=== PATIENT | male | born 1960 | race Caucasian/White ===

== ENCOUNTER 2022-08-01 12:50 | Emergency (ER) | payer OTHER ==
[~2022-08-01] VITALS: Ht 170.2 cm; Wt 81.6 kg
[2022-08-01 12:58] VITALS: BP 140/98
--- NOTE | 2022-08-01 13:02 | NUR ---
patient brought to room 4
[2022-08-01] MEDS ORDERED: IBUPROFEN 600 MG TAB PO ONE (13:15)
[2022-08-01] MEDS ORDERED: LIDOCAINE 1% 500 MG/ 50 ML VIAL INJ ONE (13:15)
[2022-08-01] MEDS ORDERED: LIDOCAINE MPF 1% 5 ML ONE (13:21)
[2022-08-01] MEDS ORDERED: LIDOCAINE MPF 1% 10 MG/ML VIAL INJ ONE (13:25)
[2022-08-01] MEDS ORDERED: BACITRACIN OINT 500 UNITS/GM PKT TP ONE (13:35)
[2022-08-01] MEDS ORDERED: IBUP-2213 PO (13:36)
[2022-08-01] MEDS ORDERED: BACI-416 TP (13:36)
--- NOTE | 2022-08-01 13:56 | NUR ---
Patient discharged with v/s stable. Written and verbal after care instructions given and explained. Patient alert, oriented and verbalized understanding of instructions. Ambulatory with steady gait. All questions addressed prior to discharge. ID band removed. Patient advised to follow up with PMD. Rx of MOTRIN, BACITRACIN given. Patient educated on indication of medication including possible reaction and side effects. Opportunity to ask questions provided and answered.
== END 2022-08-01 13:55 | disposition home or self-care (01) ==
LOC: MED 12:50
DX: S01.81XA Laceration without foreign body of other part of head, initial encounter (principal); W18.30XA Fall on same level, unspecified, initial encounter; Y93.89 Activity, other specified; Y92.89 Other specified places as the place of occurrence of the external cause; Y99.8 Other external cause status
CPT/HCPCS: 12011; 99283; J2001

== ENCOUNTER 2022-08-06 12:57 | Emergency (ER) | payer OTHER ==
[~2022-08-06] VITALS: Ht 175.3 cm; Wt 81.6 kg
[~2022-08-06 12:57] MED LIST: BACI-416 TP; IBUP-2213 PO
[2022-08-06 13:13] VITALS: BP 139/91
--- NOTE | 2022-08-06 14:54 | NUR ---
PATIENT LEFT WITHOUT DISCHARGE TO PAPERWORK.
== END 2022-08-06 14:54 | disposition home or self-care (01) ==
LOC: MED 12:57
DX: S01.81XD Laceration without foreign body of other part of head, subsequent encounter (principal); Z48.02 Encounter for removal of sutures; X58.XXXD Exposure to other specified factors, subsequent encounter
CPT/HCPCS: 99281